=== PATIENT | female | born 1945 ===

== ENCOUNTER 2018-05-24 07:00 | Day surgery (SDC) | payer OTHER ==
[~2018-05-24] VITALS: Ht 162.6 cm; Wt 65.8 kg
[~2018-05-24 07:00] MED LIST: HYZAAR 50-12.51 EACH PO; OSTERA TABLET1 EACH PO; ZOCOR20 MG PO
[2018-05-25] MEDS ORDERED: INTESTINEX680 M1 PO (08:27)
[2018-05-25] MEDS ORDERED: ULTRACET PO (08:27)
== END 2018-05-25 08:00 | disposition home or self-care (01) ==
LOC: CIR.AMB 07:00 → SURG 10:15 → O/R 11:23 → SURH 11:23 → SURG 11:30 → EDSTATUS 11:30 → CIR.AMB 05-25 08:00 → SURH 05-25 12:14 → O/R 05-25 12:14
DX: D12.8 Benign neoplasm of rectum (principal)